=== PATIENT | female | born 1995 | race Caucasian/White ===

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

== ENCOUNTER 2017-12-08 06:16 | Emergency (ER) | payer OTHER ==
[~2017-12-08] VITALS: Ht 165.1 cm; Wt 61.2 kg
[2017-12-08 06:36] VITALS: BP 95/60
[2017-12-08 07:17] LABS: Urine Bacteria MANY /hpf (None Seen); Urine Blood 3+ /uL (Negative); Urine WBC 1841 /hpf (0 - 5); Urine WBC Clumps PRESENT /hpf (None Seen)
[2017-12-08] MEDS: cefTRIAXone SOD 1,000 MG VL IM ONE (08:47)
[2017-12-08] MEDS: LIDOCAINE 1% (LOCAL ANESTH.) PF 5ml SDV ONE (08:48)
== END 2017-12-08 08:52 | disposition home or self-care (01) ==
LOC: ER 06:18
DX: N39.0 Urinary tract infection, site not specified (principal); R31.9 Hematuria, unspecified
CPT/HCPCS: 81001; 81025; 96372; 99284; J0696